=== PATIENT | female | born 1990 | race Caucasian/White ===

== ENCOUNTER 2024-05-31 12:07 | Emergency (ER) | payer OTHER ==
[~2024-05-31] VITALS: Ht 172.7 cm; Wt 80.0 kg
[2024-05-31] MEDS: LIDOCAINE 2% JELLY 11ml (GLYDO) ONE (12:25)
[2024-05-31] MEDS: OXYMETAZOLINE HCL 0.05 % NASAL SPRAY 15ML ONE (12:25)
[2024-05-31 12:54] LABS: Basophils # (auto) 0.1 10 ^3/uL (0-0.2); Eosinophils # (auto) 0.5 10 ^3/uL (0-0.8); Eosinophils % (auto) 6.9 % (0.0-7.0); Hematocrit 37.5 % (36.0-46.0); Hemoglobin 12.7 g/dL (12.2-16.2); Lymphocytes # (auto) 1.3 10 ^3/uL (0.4-5.4); Lymphocytes % (auto) 18.8 % (10.0-50.0); Mean Corpuscular Hgb Conc. 33.7 g/dL (32.0-36.0); Mean Corpuscular Volume 83.1 fL (80.0-100.0); Monocytes # (auto) 0.4 10 ^3/uL (0-1.3); Monocytes % (auto) 6.1 % (0.0-12.0); Neutrophils # (auto) 4.6 10 ^3/uL (1.6-8.6); Neutrophils % (auto) 67.2 % (37.0-80.0); Platelet Count (auto) 202 10^3/uL (140-450); Red Blood Cells 4.51 10^6/uL (4.0-5.20); Red Cell Distribution Width 14.6 % (11.8-14.3); White Blood Cell 6.9 10^3/uL (4.4-10.8)
[2024-05-31] MEDS ORDERED: CEPH250C PO (13:26)
[2024-05-31] MEDS ORDERED: NAP500T GT (13:26)
[2024-05-31] MEDS ORDERED: HYDROcodone-ACET 5/325MG TAB PO ONE (13:30)
[2024-05-31] MEDS ORDERED: CEPHALEXIN 250 MG CAP PO ONE (13:30)
[2024-05-31 13:50] VITALS: BP 119/71
[2024-05-31 14:29] VITALS: PULSE 82; RESP 18; O2SAT 98
== END 2024-05-31 13:26 | disposition admitted as inpatient to this hospital (09) ==
LOC: ER 12:07
DX: R04.0 Epistaxis (principal)
CPT/HCPCS: 30901; 36415; 85025

== ENCOUNTER 2024-06-02 12:13 | Emergency (ER) | payer OTHER ==
[~2024-06-02] VITALS: Ht 172.7 cm; Wt 82.4 kg
[~2024-06-02 12:13] MED LIST: CEPH250C PO; NAP500T GT
[2024-06-02 12:25] VITALS: BP 120/69; PULSE 81; RESP 18; O2SAT 94
== END 2024-06-02 13:27 | disposition home or self-care (01) ==
LOC: ER 12:13
DX: Z00.00 Encounter for general adult medical examination without abnormal findings (principal); Z79.1 Long term (current) use of non-steroidal anti-inflammatories (NSAID)